=== PATIENT | female | born 1930 | race Caucasian/White ===

== ENCOUNTER → 2016-06-11 | Outpatient (CLI) | payer BC ==
[~2016-06-11] MED LIST: ACYC1CAP8 PO; ACYC400T PO; ALL300 PO; AMLO-110 PO; AMOX500C3 PO; ASPEC81 PO; ASPI81TA28 PO; Asmanex INH; COEN1CAP46 PO; ESCI10TA17 PO; HYDR-5688 PO; HYDR12.55 PO; HYDR25TA4 PO; LEVO75TA5 PO; LORA-741 PO; LSN20 PO; METR0.754 TOP; OMEG10007 PO; PANT40TA PO; SNK PO; TYL325X PO; ULT50X PO
--- NOTE | 2016-06-11 12:02 | Discharge Instructions ---
Discharge Instructions Procedure Procedure Date: Jun 11, 2016. Reason for visit: Lt Breast Pain. Discharge Discharge Date: Jun 11, 2016. Discharge Diagnosis: status post breast biopsy Instructions Activity Recommendations: Additional Limitations (see below) Return to School/Work: no limitations Recommended Home Diet: No Limitations Provider Instructions: ACTIVITY RECOMMENDATIONS: * No lifting, pushing, pulling or exercising the affected side for three days. RETURN TO SCHOOL/WORK: * You may return to work/school after the procedure, but do not perform any strenuous activities for 24 to 48 hours. MEDICATIONS: * Tylenol (two 325 mg) every four to six hours if needed for mild pain (if not allergic to Tylenol). DIET: * Resume previous diet. SPECIAL CARE INSTRUCTIONS: * Keep biopsy site dry for 24 hours. May shower after 24 hours, but do not soak (bathe) incision. * May remove Tegaderm (plastic patch) tomorrow AFTER showering. * Leave the steri-strips on for one week. Allow the steri-strips to fall off by themselves. If not off after one week, you may remove them. You may place a Bandaid crosswise over the strips, if desired. * Apply ice 10 minutes on and 10 minutes off as needed. * Wear a bra at bedtime to sleep more comfortably for 2-3 days. * Your referring physician should have the results after approximately 5 to 7 business days. * Call for unusual bleeding, fever, drainage, etc or if you have any questions call during normal business hours or after hours call Dr Thomas, [phone]. FOLLOW UP VISIT: Follow-up with Referring Physician as scheduled. Allergies Coded Allergies: No Known Allergies (Unverified , 03/20/15) Isidoro Jara Recommendations: Call your doctor if: * Temperature above 101 degrees * Pain not relieved by pain medicine ordered * There is increased drainage or redness from any incision * You have any unanswered questions or concerns. Your Doctors Instructions noted above were prepared by provider Faviola Thomas. Patient Signature Section: Patient Instructions Signature Page Erika Sharma Patient (or Guardian) Signature/Date: I have read and understand the instructions given to me by my caregivers. Caregiver/RN/Doctor Signature/Date: The above-named patient and/or guardian has received patient instructions on this date. + Original Patient Signature Page (only) stays with chart. Please make copy for patient.
--- NOTE | 2016-06-14 14:54 | MAMMOGRAPHY REPORT ---
ULTRASOUND GUIDED BIOPSY LEFT BREAST: 06/11/2016 CLINICAL HISTORY: Left 3:00 breast mass. PATIENT CONSENT: The procedure, risks and benefits were discussed with the patient and informed writ ten consent was obtained. A timeout was performed immediately prior to the procedure. PROCEDURE DESCRIPTION: With ultrasound guidance, aseptic technique, and lidocaine as the local anest hetic (1% lidocaine to anesthetize the skin and 1% lidocaine with epinephrine to anesthetize the femi per tissues), the mass of concern was sampled 4 times with a 14-gauge Achieve biopsy needle. Immed iately thereafter, with ultrasound guidance, aseptic technique, and lidocaine as the local anestheti c, a metallic localizer clip was placed centrally in the mass. Direct pressure was applied to the s ite immediately post procedure and hemostasis was achieved. Postprocedure unilateral mammograms wer e performed to confirm placement of the clip in the expected location of the breast mass. The patie nt tolerated the procedure without complication. She was given wound care instructions. The specime ns were sent to pathology for analysis. COMPARISON: Comparison is made to exams dated: 09/12/2015 mammogram, 09/10/2014 mammogram, 01/23/2013 ma mmogram, 07/13/2012 mammogram, and 03/09/2012 mammogram - [facility]. IMPRESSION: ULTRASOUND GUIDED BIOPSY Ultrasound guided core needle biopsy of the left 3:00 breast mass, with clip placement. The patient will receive pathology results from her referring physician. Faviola Thomas M.D. ah/:06/11/2016 16:21:45 Box Annealer: Sherrie ROBERSON(Jackie)(M), [facility]
--- NOTE | 2016-06-14 14:55 | MAMMOGRAPHY REPORT ---
UNILATERAL LEFT DIGITAL DIAGNOSTIC MAMMOGRAM TOMOSYNTHESIS WITH CAD AND TARGETED LEFT ULTRASOUND: 06/11/2016 CLINICAL HISTORY: History of left breast cancer status post lumpectomy and subsequent benign biopsie s of the left breast. The patient reports worsening nonfocal pain in the left breast. She denies a ny palpable lumps. She has also noted dark brown discharge on her left nipple intermittently; she r eports she has had prior episodes of this in the past as well. TECHNIQUE: Breast tomosynthesis in addition to standard 2D mammography was performed. Current study was also evaluated with a Computer Aided Detection (CAD) system. Left CC and MLO 2-D and tomosynth esis images were obtained. COMPARISON: Comparison is made to exams dated: 09/12/2015 mammogram, 09/10/2014 mammogram, 01/23/2013 ma mmogram, 07/13/2012 mammogram, and 03/09/2012 mammogram - [facility]. BREAST COMPOSITION: There are scattered areas of fibroglandular density in the left breast. FINDINGS: There is a 5 mm mass with non-circumscribed margins seen within the left upper outer quad rant, for which ultrasound is recommended. The remainder of the left breast is stable compared to p rior exams, without suspicious masses, calcifications, or areas of architectural distortion noted. There are stable postsurgical changes in the left breast from prior lumpectomy. Coarse benign dystr ophic calcifications seen throughout the left breast are again noted. Irregular mass seen within th e left superior breast with 2 biopsy marker clips is less prominent compared to prior exams; this wa s previously biopsied with pathology showing benign findings including fat necrosis. Targeted ultrasound was performed of the areas of pain pointed out by the patient, involving the lef t breast from 12 to 3:00. The patient's left breast was quite tender during the ultrasound exam. I n the left breast at 3:00, 6 cm from the nipple, there is a superficial mixed echogenicity mass, whi ch is hyperechoic peripherally and contains a central hypoechoic portion. The total extent of the m ass measures 8 x 4 x 7 mm, with the central hypoechoic portion measuring 2 mm. This correlates with the mammographic mass, and is indeterminate with the differential including fat necrosis or maligna ncy. Recommend ultrasound guided core needle biopsy for further evaluation. The remainder of the u ltrasound exam demonstrates no suspicious masses or other suspicious sonographic abnormalities. In the left 11 at 12:00 breast is a hypoechoic superficial mass, which was previously biopsied and yiel ded benign findings including fat necrosis. In the left 1:00 periareolar breast at the site of a medeiros rgical scar, the surgical bed is diffusely hypoechoic consistent with postsurgical changes, with the surgical bed better evaluated mammographically. Postprocedural left CC and MLO and ML views were obtained after the biopsy. A new ribbon-shaped bio psy marker clip is seen at the site of the biopsied 3:00 breast mass. The biopsied sonographic mass correlates with the mammographic finding. No significant postbiopsy hematoma is seen. IMPRESSION: ACR BI-RADS CATEGORY 4: SUSPICIOUS, TARGETED ULTRASOUND ACR BI-RADS CATEGORY 4: SUSPICI OUS 1. Small 5 mm mass in the left upper outer quadrant mammographically, with a corresponding mixed ec hogenicity mass seen on ultrasound in the left breast at 3:00. The mass is indeterminate and may re present fat necrosis or malignancy. Recommend ultrasound-guided core needle biopsy for further eval uation. 2. No clear mammographic or sonographic abnormality to explain left breast pain or brown nipple dis charge. Recommend clinical follow-up. The results were reviewed with the patient. The biopsy was performed after the diagnostic workup, a s the patient is leaving for [place] on Tuesday. Approximately 10% of breast cancers are not detected with mammography. A negative mammographic repor t should not delay biopsy if a clinically suggestive mass is present. Faviola Thomas M.D. ah/:06/11/2016 16:23:03 Knitting Machine Operator: Sherrie ROBERSON(Jackie)(M), [facility] BI-RADS Code: ACR BI-RADS Category 4: Suspicious Ultrasound BI-RADS: ACR BI-RADS Category 4: Suspic ious
== END | disposition home or self-care (01) ==
LOC: C.MAMM 11:05
PROVIDERS: ATTEND Nurse Practitioner Family
DX: N64.4 Mastodynia (principal); N63 Unspecified lump in breast

== ENCOUNTER → 2016-09-02 | Outpatient (CLI) | payer BC ==
[~2016-09-02] MED LIST changes: +ACYC-57 PO; -ACYC1CAP8 PO
[2016-09-02 10:24] LABS: ALT/SGPT 30 U/L (12-78); BLOOD UREA NITROGEN 29 mg/dl (7-18); BUN/CREATININE RATIO 24.5 (10-20); CALCIUM 9.7 mg/dl (8.5-10.1); CARBON DIOXIDE 30 mmol/L (21-32); CHLORIDE 103 mmol/L (98-107); GLUCOSE 102 mg/dl (70-99); POTASSIUM 4.3 mmol/L (3.5-5.1); SODIUM 140 mmol/L (136-145)
[2016-09-02 10:34] LABS: ALB/GLOB RATIO 1.3 (0.9-2); ALKALINE PHOSPHATASE 97 U/L (45-117); AST/SGOT 25 U/L (15-37)
[2016-09-02 12:31] LABS: MEAN CELL VOLUME 92.9 fL (80-100); MEAN CORPUSCULAR HEMOGLOBIN 31.7 pg (25-34); MEAN CORPUSCULAR HGB CONC 34.1 g/dl (32-36); PLATELET COUNT 172 K/uL (130-400)
[2016-09-02 13:18] LABS: BASO ABS # 0.06 K/uL (0-0.2); COMPLETE YES; EOS % 4.5 %; IG% 0.2 %; LYMPH % 38.7 %; LYMPH ABS # 2.32 K/uL (1.2-3.4); MONO % 11.5 %; NEUT % 44.1 %
== END | disposition home or self-care (01) ==
LOC: C.LABFOXMH 09:27
PROVIDERS: ATTEND Internal Medicine Hematology & Oncology
DX: C91.10 Chronic lymphocytic leukemia of B-cell type not having achieved remission (principal)

== ENCOUNTER → 2016-09-16 | Outpatient (CLI) | payer BC ==
--- NOTE | 2016-09-16 11:25 | DIAGNOSTIC IMAGING REPORT ---
TWO VIEW CHEST CLINICAL HISTORY: Leukemia. FINDINGS: PA and lateral chest radiographs are compared to study dated 03/20/2015 and correlated with chest CT dated 08/28/2013. A left subclavian central venous infusion port is unchanged in position. The heart is mildly enlarged and there is atherosclerotic calcification of the thoracic aorta. The pulmonary vasculature is noncongested. Chronic interstitial thickening is similar to previous. No airspace consolidation or pleural effusion is identified. There is no pneumothorax. The skeletal structures are osteopenic. Degenerative change is seen throughout the thoracic spine. Surgical clips are noted in the left axilla. Cholecystectomy clips are identified in the right upper quadrant. IMPRESSION: Mild cardiac enlargement with no acute cardiopulmonary abnormality. Electronically signed by: Rob Acuna M.D. 09/16/2016 11:23 AM Dictated Date/Time: 09/16/2016 11:21 AM
--- NOTE | 2016-09-16 12:13 | DIAGNOSTIC IMAGING REPORT ---
ABDOMINAL ULTRASOUND COMPLETE HISTORY: Neoplasm. Pain. LEUKEMIA. COMPARISON: February 02, 2010 FINDINGS: Pancreas: The pancreas demonstrates a normal echotexture. 6 mm cystic process seen in the study 2009 is not seen currently Liver: Unremarkable. Gallbladder: Surgically removed CBD: 7 mm unremarkable in a postoperative patient Kidneys: Small left renal cyst measuring 1.5 cm. No evidence for hydronephrosis. 3 cm mid pole right renal cyst. Spleen: Normal in size. Aorta: Normal in caliber. IVC: Patent. IMPRESSION: No significant abnormality identified within the within the abdomen. Small bilateral renal cysts. Prior cholecystectomy. Electronically signed by: Cristian Hernandez M.D. 09/16/2016 12:11 PM Dictated Date/Time: 09/16/2016 12:09 PM
== END | disposition home or self-care (01) ==
LOC: C.ULTR 10:47
PROVIDERS: ATTEND Internal Medicine Hematology & Oncology
DX: C91.10 Chronic lymphocytic leukemia of B-cell type not having achieved remission (principal)

== ENCOUNTER → 2016-10-14 | Outpatient (CLI) | payer BC ==
--- NOTE | 2016-10-14 15:40 | MAMMOGRAPHY REPORT ---
BILATERAL DIGITAL SCREENING MAMMOGRAM TOMOSYNTHESIS WITH CAD: 10/14/2016 CLINICAL HISTORY: Asymptomatic. Personal history of breast cancer. TECHNIQUE: Breast tomosynthesis in addition to standard 2D mammography was performed. Current study was also evaluated with a Computer Aided Detection (CAD) system. COMPARISON: Comparison is made to exams dated: 06/11/2016 ultrasound biopsy, 06/11/2016 ultrasound, 06/11 mammogram, 09/12/2015 mammogram, 09/10/2014 mammogram, and 01/23/2013 mammogram - [facility]. BREAST COMPOSITION: There are scattered areas of fibroglandular density in both breasts. FINDINGS: No suspicious masses, calcifications, or areas of architectural distortion are noted in e ither breast. There has been no significant interval change compared to prior exams. There are stab le postsurgical changes in the left breast from prior lumpectomy. Bilateral benign-appearing calcif ications are not significantly changed. Left breast asymmetries and left breast biopsy marker clips are unchanged. IMPRESSION: ACR BI-RADS CATEGORY 2: BENIGN There is no mammographic evidence of malignancy. A 1 year screening mammogram is recommended. The p atient will receive written notification of the results. Approximately 10% of breast cancers are not detected with mammography. A negative mammographic repor t should not delay biopsy if a clinically suggestive mass is present. Faviola Thomas M.D. ah/:10/14/2016 14:49:30 Business Support Manager: Nevin DELONG)(Dominick), [facility] letter sent: Normal 1/2 BI-RADS Code: ACR BI-RADS Category 2: Benign
== END | disposition home or self-care (01) ==
LOC: C.MAMM 11:17
PROVIDERS: ATTEND Internal Medicine Hematology & Oncology
DX: Z12.31 Encounter for screening mammogram for malignant neoplasm of breast (principal); Z85.3 Personal history of malignant neoplasm of breast

== ENCOUNTER → 2016-12-14 | Outpatient (CLI) | payer BC ==
[~2016-12-14] MED LIST changes: -ACYC-57 PO; +ACYC1CAP8 PO
[2016-12-14 09:09] LABS: HEMATOCRIT 40.5 % (37-47); MEAN CORPUSCULAR HEMOGLOBIN 29.9 pg (25-34); MEAN CORPUSCULAR HGB CONC 32.8 g/dl (32-36); MEAN PLATELET VOLUME 10.7 fL (7.4-10.4); PLATELET COUNT 188 K/uL (130-400); RED BLOOD COUNT 4.45 M/uL (4.2-5.4); WHITE BLOOD COUNT 6.64 K/uL (4.8-10.8)
[2016-12-14 09:17] LABS: BLOOD UREA NITROGEN 26 mg/dl (7-18); BUN/CREATININE RATIO 23.9 (10-20); CALCIUM 9.8 mg/dl (8.5-10.1); CARBON DIOXIDE 28 mmol/L (21-32); CHLORIDE 102 mmol/L (98-107); GLUCOSE 97 mg/dl (70-99); POTASSIUM 4.5 mmol/L (3.5-5.1); SODIUM 137 mmol/L (136-145)
== END | disposition home or self-care (01) ==
LOC: C.LABFOXMH 08:49
PROVIDERS: ATTEND Internal Medicine
DX: I10 Essential (primary) hypertension (principal)

== ENCOUNTER → 2017-03-08 | Outpatient (CLI) | payer BC ==
[~2017-03-08] MED LIST changes: -ACYC1CAP8 PO; -ALL300 PO; -ASPEC81 PO; -Asmanex INH; -COEN1CAP46 PO; -HYDR-5688 PO; -HYDR12.55 PO; -LORA-741 PO; -METR0.754 TOP; -OMEG10007 PO; -SNK PO; -TYL325X PO; -ULT50X PO
[2017-03-08 09:34] LABS: BASO % 1.3 %; BASO ABS # 0.08 K/uL (0-0.2); COMPLETE YES; EOS % 4.8 %; HEMATOCRIT 38.6 % (37-47); IG% 0.3 %; LYMPH % 32.3 %; LYMPH ABS # 2.04 K/uL (1.2-3.4); MEAN CELL VOLUME 90.6 fL (80-100); MEAN CORPUSCULAR HGB CONC 34.2 g/dl (32-36); MEAN PLATELET VOLUME 10.6 fL (7.4-10.4); MONO % 16.2 %; NEUT % 45.1 %; PLATELET COUNT 185 K/uL (130-400); RED BLOOD COUNT 4.26 M/uL (4.2-5.4); WHITE BLOOD COUNT 6.31 K/uL (4.8-10.8)
[2017-03-08 09:41] LABS: BLOOD UREA NITROGEN 26 mg/dl (7-18); BUN/CREATININE RATIO 25.9 (10-20); CALCIUM 9.7 mg/dl (8.5-10.1); CARBON DIOXIDE 26 mmol/L (21-32); CHLORIDE 101 mmol/L (98-107); GLUCOSE 109 mg/dl (70-99); POTASSIUM 4.3 mmol/L (3.5-5.1); SODIUM 135 mmol/L (136-145)
[2017-03-08 09:53] LABS: IMMUNOGLOBULN M 38.3 mg/dL (40-230)
== END | disposition home or self-care (01) ==
LOC: C.LABFOXMH 09:15
PROVIDERS: ATTEND Surgery
DX: Z95.828 Presence of other vascular implants and grafts (principal); C91.10 Chronic lymphocytic leukemia of B-cell type not having achieved remission

== ENCOUNTER → 2017-03-22 | Day surgery (SDC) | payer BC ==
[2017-03-02 11:12] VITALS: Ht 152.4 cm; Wt 54.5 kg
--- NOTE | 2017-03-02 16:45 | PAT Medication Instructions ---
Service Date Mar 02, 2017. Current Home Medication List Acyclovir (Acyclovir), 1 TAB PO QAM Amlodipine (Norvasc), 5 MG PO QAM Amoxicillin (Amoxil), 4 CAP PO UD PRN for DENTAL APPTS Aspirin (Aspirin Ec), 81 MG PO QAM Escitalopram (Lexapro), 10 MG PO QAM Hydrochlorothiazide (Hctz), 25 MG PO QAM Levothyroxine Sodium (Levothyroxine Sodium), 1 TAB PO QAM Lisinopril (Lisinopril), 20 MG PO QAM Pantoprazole (Protonix), 40 MG PO QAM Medication Instructions For Your Scheduled Surgery -Continue as directed: Amoxicillin (Amoxil), 4 CAP PO UD PRN for DENTAL APPTS - Instructions to be given by surgeon, otherwise okay to take per anesthesia: Aspirin (Aspirin Ec), 81 MG PO QAM - Hold the following medications the morning of surgery: Hydrochlorothiazide (Hctz), 25 MG PO QAM Lisinopril (Lisinopril), 20 MG PO QAM - Take the following medications the morning of surgery with a sip of water: Levothyroxine Sodium (Levothyroxine Sodium), 1 TAB PO QAM Pantoprazole (Protonix), 40 MG PO QAM Escitalopram (Lexapro), 10 MG PO QAM Acyclovir (Acyclovir), 1 TAB PO QAM Amlodipine (Norvasc), 5 MG PO QAM *OTHERWISE NOTHING TO EAT OR DRINK AFTER MIDNIGHT* If you have any questions please call us at [phone] or [phone] or [phone]
[~2017-03-22] VITALS: Ht 152.4 cm; Wt 54.5 kg
[~2017-03-22] MED LIST changes: +ATROPINE SULFATE 0.1 MG/ML 5ML SYR IV PRN; +CEFAZOLIN 2000 MG/60 ML D5W IV SCH; +EpHEDrine SULFATE INJ 50 MG/ML AMP IV PRN; +FENTANYL CITRATE INJ 50 MCG/1 ML 2 ML VIAL IV PRN; +FENTANYL CITRATE INJ 50 MCG/1 ML 2 ML VIAL ONE; +HYDR-5688 PO; +HYDROCODONE/ACETAMOPHEN 5/325MG TAB PO PRN; +LACTATED RINGER'S 1000ML 1,000 ML IV SCH; +LIDOCAINE HCL 1% 20 ML VIAL ONE; +ONDANSETRON INJ 2 MG/ML 2 ML VIAL IV PRN; +PROPOFOL IV EMULSION 10 MG/ML 20 ML VIAL IV ONE; +SODIUM CHLORIDE 0.9% 1000ML 1,000 ML IV SCH
--- NOTE | 2017-03-22 13:00 | History & Physical Bridge - SC ---
H&P Re-Evaluation Bridge Note: I have examined the patient, reviewed the History & Physical and in the interval since the performance of the History & Physical I have noted the following changes of clinical significance: No changes noted
--- NOTE | 2017-03-22 14:44 | [facility] Operative Report ---
Operative Report Operative Date Mar 22, 2017. Pre-Operative Diagnosis Port-A-Cath in Place Post-Operative Diagnosis Same Procedure(s) Performed Infusaport Removal Surgeon Dr. Brush Last Repairer Helper Surgeon(s) None Estimated Blood Loss 3 ml Findings port Specimens A. Explanted A-port Anesthesia local/ sedation Complication(s) None Disposition Recovery Room / PACU I attest to the content of the Intraoperative Record and any orders documented therein. Any exceptions are noted below.
[2017-03-22 14:46] VITALS: TEMP 36.4
--- NOTE | 2017-03-22 14:47 | Discharge Instructions-SurgCtr ---
Discharge Instructions Date of Service Mar 22, 2017. Visit Reason for Visit: Port-A-Cath In Place Discharge Discharge Diagnosis / Problem: port Discharge Goals Goal(s): Decrease discomfort, Improve function, Improve disease control Activity Recommendations Activity Limitations: as noted below Lifting Limitations: gradually increase as tolerated Exercise/Sports Limitations: rest today, gradually increase as tolerated May Resume Sexual Activity: when tolerated Shower/Bathe: tomorrow Driving or Machine Use: resume 1 day after discharge SPECIAL CARE INSTRUCTIONS: * Cover incisions and change daily for comfort/drainage * May use ibuprofen for pain as tolerated. * Expect some swelling and bruising. Call your doctor if: * Temperature above 101 degrees * Pain not relieved by pain medicine ordered * There is increased drainage or redness from any incision * You have any unanswered questions or concerns [phone]. FOLLOW UP VISIT: If not already scheduled, please call the office for a follow-up visit. for 2 weeks- suture removal OFFICE PHONE NUMBER: Dr. Brush Office Anesthesia . Post Anesthesia Instructions: If you have had General Anesthesia or IV Sedation: * Do not drive today. * Resume driving when surgeon permits. * Do not make important decisions or sign legal documents today. * Call surgeon for: 1. Temperature elevations greater than 101 degrees F. 2. Uncontrollable pain. 3. Excessive bleeding. 4. Persistent nausea and vomiting. 5. Medication intolerance (nausea, vomiting or rash). * For nausea and vomiting use only clear liquids such as: tea, soda, bouillon until nausea subsides, then gradually increase diet as tolerated. * If you have any concerns or questions, call your surgeon's office. If physician is unavailable and it is an emergency, call 911 or go to the nearest emergency room. . Diet Recommendations Home Diet: resume previous diet Procedures Procedures Performed: Infusaport Removal Pending Studies Studies pending at discharge: no Medical Emergencies . Who to Call and When: Medical Emergencies: If at any time you feel your situation is an emergency, please call 911 immediately. . Non-Emergent Contact Non-Emergency issues call your: Primary Care Provider, Surgeon . . "Provider Documentation" section prepared by Jean-Paul Brush. .
[2017-03-22 15:13] VITALS: BP 158/75; PULSE 69; O2SAT 98
--- NOTE | 2017-03-22 15:17 | Anesthesiology Progress Note ---
Anesthesia Post Op Note Date & Time Mar 22, 2017 at 15:16 Vital Signs Pain Intensity: 0 Vital Signs Past 12 Hours Date Time Temp Pulse Resp B/P (MAP) Pulse Ox O2 Delivery O2 Flow Rate FiO2 03/22/17 14:46 36.4 59 16 146/72 (96) 95 Room Air 03/22/17 13:04 36.4 80 18 188/88 (121) 97 Room Air Notes Mental Status: alert / awake / arousable, participated in evaluation Pt Amnestic to Procedure: Yes Nausea / Vomiting: adequately controlled Pain: adequately controlled Airway Patency, RR, SpO2: stable & adequate BP & HR: stable & adequate Hydration State: stable & adequate Anesthetic Complications: no major complications apparent
--- NOTE | 2017-03-22 16:54 | OPERATIVE REPORT ---
DATE OF OPERATION: 03/22/2017 NAME OF OPERATION: Port removal. PREOPERATIVE DIAGNOSIS: Hand port in place. POSTOPERATIVE DIAGNOSIS: Same. STAFF SURGEON: Dr. Brush. ANESTHESIA: 1% plain lidocaine with sedation. PROCEDURE: The patient was brought in the operating room and placed on the operating table in supine position. Her left chest was prepped and draped in usual fashion. Using 1% plain lidocaine, skin and subcutaneous tissue were anesthetized. Incision made carrying dissection down identifying the port, dissecting it from surrounding tissue, removing the port. The tunnel was oversewn using 2-0 chromic catgut suture then the deep tissue reapproximated using 2-0 chromic catgut suture then the skin reapproximated using 4-0 nylon suture. Dressing applied and patient transferred to recovery room in stable condition. I attest to the content of the Intraoperative Record and any orders documented therein. Any exception s are noted below.
== END | disposition home or self-care (01) ==
LOC: X.SURG 12:53
PROVIDERS: ATTEND Surgery
DX: Z45.2 Encounter for adjustment and management of vascular access device (principal); I10 Essential (primary) hypertension; E03.9 Hypothyroidism, unspecified; E78.00 Pure hypercholesterolemia, unspecified; M19.90 Unspecified osteoarthritis, unspecified site; Z90.89 Acquired absence of other organs; Z90.49 Acquired absence of other specified parts of digestive tract; Z96.649 Presence of unspecified artificial hip joint; Z79.82 Long term (current) use of aspirin

== ENCOUNTER → 2017-08-23 | Outpatient (CLI) | payer BC ==
[~2017-08-23] MED LIST changes: -ATROPINE SULFATE 0.1 MG/ML 5ML SYR IV PRN; -CEFAZOLIN 2000 MG/60 ML D5W IV SCH; -EpHEDrine SULFATE INJ 50 MG/ML AMP IV PRN; -FENTANYL CITRATE INJ 50 MCG/1 ML 2 ML VIAL IV PRN; -FENTANYL CITRATE INJ 50 MCG/1 ML 2 ML VIAL ONE; -HYDROCODONE/ACETAMOPHEN 5/325MG TAB PO PRN; -LACTATED RINGER'S 1000ML 1,000 ML IV SCH; -LIDOCAINE HCL 1% 20 ML VIAL ONE; -ONDANSETRON INJ 2 MG/ML 2 ML VIAL IV PRN; -PROPOFOL IV EMULSION 10 MG/ML 20 ML VIAL IV ONE; -SODIUM CHLORIDE 0.9% 1000ML 1,000 ML IV SCH
[2017-08-23 08:08] LABS: HEMATOCRIT 44.3 % (37-47); HEMOGLOBIN 14.3 g/dL (12.0-16.0); MEAN CELL VOLUME 92.1 fL (80-100); MEAN CORPUSCULAR HEMOGLOBIN 29.7 pg (25-34); MEAN CORPUSCULAR HGB CONC 32.3 g/dl (32-36); MEAN PLATELET VOLUME 10.6 fL (7.4-10.4); PLATELET COUNT 190 K/uL (130-400); RED CELL DISTRIBUTION WIDTH CV 12.7 % (11.5-14.5); RED CELL DISTRIBUTION WIDTH SD 42.8 fL (36.4-46.3)
[2017-08-23 08:15] LABS: ALBUMIN 3.4 gm/dl (3.4-5.0); ALT/SGPT 24 U/L (12-78); BLOOD UREA NITROGEN 33 mg/dl (7-18); CALCIUM 9.8 mg/dl (8.5-10.1); CARBON DIOXIDE 28 mmol/L (21-32); CHOLESTEROL 240 mg/dl (0-200); CREATININE 1.17 mg/dl (0.60-1.20); GLUCOSE 98 mg/dl (70-99); POTASSIUM 4.4 mmol/L (3.5-5.1); SODIUM 136 mmol/L (136-145)
[2017-08-23 08:26] LABS: ALKALINE PHOSPHATASE 88 U/L (45-117); AST/SGOT 24 U/L (15-37); LDL CHOLESTEROL CALCULATED 149 mg/dl; TOTAL PROTEIN 6.4 gm/dl (6.4-8.2)
== END ==
LOC: C.LABFOXMH 07:56
PROVIDERS: ATTEND Internal Medicine
DX: E78.00 Pure hypercholesterolemia, unspecified (principal); C91.10 Chronic lymphocytic leukemia of B-cell type not having achieved remission

== ENCOUNTER → 2017-12-26 | Outpatient (CLI) | payer BC ==
[~2017-12-26] MED LIST changes: -AMLO-110 PO; +AMLO5TAB3 PO; -HYDR-5688 PO; +LISI-726 PO; -LSN20 PO
--- NOTE | 2017-12-26 17:53 | DIAGNOSTIC IMAGING REPORT ---
3 PHASE BONE SCAN OF THE PELVIS/HIPS HISTORY: Bilateral hip PAIN, S/P MOE RADIOTRACER: 25.4 mCi Tc-99m MDP STUDY/IMAGES: Planar anterior and posterior whole body imaging was performed 3 hours following the intravenous administration of radiotracer. COMPARISON: Pelvis radiograph 04/14/2015. 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 No abnormal radiotracer uptake seen within the blood pool or blood flow sequences. Minimal periprosthetic uptake within the bilateral hips is symmetric and therefore likely within the range normal limits. Mild radiotracer uptake seen within the shoulders and knees consistent with degenerative change. Focus of radiotracer uptake seen within the left posterior L5-S1 facet also likely represents degenerative change. Faint areas of bilateral rib uptake likely represent old posttraumatic changes. IMPRESSION: 1. No evidence for three-phase uptake within the pelvis or hips. 2. Minimal symmetric periprosthetic uptake within the bilateral hips is considered to be within the range of normal limits. Electronically signed by: Lai Juárez M.D. 12/26/2017 5:51 PM Dictated Date/Time: 12/26/2017 5:47 PM
== END | disposition home or self-care (01) ==
LOC: C.NUCL 13:34
DX: Z96.643 Presence of artificial hip joint, bilateral (principal)

== ENCOUNTER → 2017-12-27 | Outpatient (CLI) | payer BC ==
[2017-12-27 09:44] LABS: HEMATOCRIT 40.9 % (37-47); HEMOGLOBIN 13.1 g/dL (12.0-16.0); MEAN CELL VOLUME 92.3 fL (80-100); MEAN CORPUSCULAR HEMOGLOBIN 29.6 pg (25-34); MEAN PLATELET VOLUME 10.8 fL (7.4-10.4); PLATELET COUNT 161 K/uL (130-400); RED CELL DISTRIBUTION WIDTH CV 12.7 % (11.5-14.5); RED CELL DISTRIBUTION WIDTH SD 42.9 fL (36.4-46.3); WHITE BLOOD COUNT 8.02 K/uL (4.8-10.8)
[2017-12-27 09:58] LABS: ALBUMIN 3.3 gm/dl (3.4-5.0); BLOOD UREA NITROGEN 32 mg/dl (7-18); CALCIUM 9.6 mg/dl (8.5-10.1); CARBON DIOXIDE 27 mmol/L (21-32); CREATININE 1.05 mg/dl (0.60-1.20); GLUCOSE 99 mg/dl (70-99); POTASSIUM 4.2 mmol/L (3.5-5.1); SODIUM 139 mmol/L (136-145); TOTAL PROTEIN 6.3 gm/dl (6.4-8.2)
[2017-12-27 09:59] LABS: ALKALINE PHOSPHATASE 85 U/L (45-117); ALT/SGPT 24 U/L (12-78); AST/SGOT 23 U/L (15-37); CHOLESTEROL 229 mg/dl (0-200); LDL CHOLESTEROL CALCULATED 159 mg/dl
== END | disposition home or self-care (01) ==
LOC: C.LABFOXMH 08:59
PROVIDERS: ATTEND Internal Medicine
DX: I10 Essential (primary) hypertension (principal); E78.5 Hyperlipidemia, unspecified

== ENCOUNTER 2018-11-06 10:20 | Observation (INO) ==
--- NOTE | 2018-10-27 10:36 | Anesthesiology Consultation ---
Date of Service October 27, 2018 Assessment & Plan (1) Encounter for pre-operative examination: (2) Encounter for pre-operative examination: Chart Review Chart Review: Acceptable Risk for Surgery and Patient NOT seen in Pre Admission Testing History Surgery Operation Date: 11/06/18 08:20 Proposed Procedures p Left Breast Nipple Area Excision - Jean-Paul Brush MD, FACS Height/Weight Height: 5 ft Weight: 54.885 kg Allergies Allergy/AdvReac Type Severity Reaction Status Date / Time No Known Allergies Allergy Verified 10/25/18 10:44 Medications Home Medications Medication Instructions Recorded Confirmed Last Taken acyclovir 400 mg PO QAM 10/25/18 10/25/18 Unknown albuterol sulfate [ProAir HFA] 1 puff INHALATION Q4H PRN 10/25/18 10/25/18 Unknown amlodipine [Norvasc] 5 mg PO QAM 10/25/18 10/25/18 Unknown amoxicillin 500 mg PO UD PRN 10/25/18 10/25/18 Unknown aspirin 81 mg PO QAM 10/25/18 10/25/18 Unknown escitalopram oxalate [Lexapro] 10 mg PO QAM 10/25/18 10/25/18 Unknown hydrochlorothiazide 25 mg PO QAM 10/25/18 10/25/18 Unknown levothyroxine [Synthroid] 75 mcg PO QAM 10/25/18 10/25/18 Unknown lisinopril 20 mg PO QAM 10/25/18 10/25/18 Unknown mometasone [Asmanex Twisthaler] 2 inh INHALATION BID 10/25/18 10/25/18 Unknown omega 5-fjv-nwv-fish oil [Fish Oil] 1 cap PO BID 10/25/18 10/25/18 Unknown pantoprazole 40 mg PO QAM 10/25/18 10/25/18 Unknown Past Medical History Medical History Anxiety Cancer SKIN CANCER (MELANOMA) LEFT BREAST CANCER (LUMPECTOMY) Chronic obstructive pulmonary disease Degenerative disc disease GERD (gastroesophageal reflux disease) Hypertension Hypothyroidism Osteoarthritis Stomach ulcer 1987 Past Surgical History Surgical History History of appendectomy History of breast biopsy History of cataract surgery RT/LEFT History of cholecystectomy History of colonoscopy History of dilatation and curettage X2 History of esophagogastroduodenoscopy (EGD) History of lobectomy of lung RT LOWER LOBECTOMY (BENIGN) History of tonsillectomy History of total hip arthroplasty LEFT/RT History of vascular access device A PORT INSERTION/REMOVAL Hx of lumpectomy LEFT Nausea and vomiting after administration of anesthetic agent + SHAKING ALL OVER AND "HYPER" AFTER A-PORT REMOVAL Social History Smoking Status: Never smoker Do You Dip or Chew Tobacco: No Hx Alcohol Use: Yes Alcohol type: wine alcohol intake frequency: a few times a month Hx Substance Use: No substance use type: does not use Testing Electrocardiogram Date: 09/26/18 Findings: + NSR @ (73) Chest X-Ray Date: 10/06/18 Findings: + NAD Stress Test Date: 10/06/18 Type: DSE negative dobutamine stress echo at 87% MPHR Dobutamine induced chest pain No EKG changes Baseline echocardiogram notes normal left ventricular systolic function and mild LVH EF 65-70% Other Testing Laboratory Tests 10/09/18 10/09/18 06:20 06:20 WBC 11.38 H Hgb 13.0 Plt Count 151 Sodium 142 Potassium 4.4 Chloride 108 H Carbon Dioxide 28 BUN 27 H Creatinine 1.06 Glucose 101 H Calcium 9.7
[~2018-11-06 10:20] MED LIST changes: -ACYC400T PO; -AMLO5TAB3 PO; -AMOX500C3 PO; -ASPI81TA28 PO; +CEFAZOLIN 2000MG 2,000 MG/15 ML SYR IV SCH; -ESCI10TA17 PO; -HYDR25TA4 PO; -LEVO75TA5 PO; -LISI-726 PO; +LR 15ML/HR IV SCH; -PANT40TA PO
[2018-11-06] MEDS ORDERED: PROPOFOL IV EMULSION 10 MG/ML 20 ML VIAL IV ONE (10:31)
[2018-11-06] MEDS ORDERED: LIDOCAINE HCL 2% 2 ML VIAL/AMP(20MG/ML) INFIL ONE (10:31)
[2018-11-06] MEDS ORDERED: ONDANSETRON INJ 2 MG/ML 2 ML VIAL ONE (10:31)
[2018-11-06] MEDS ORDERED: MIDAZOLAM HCL 1 MG/ML 2ML VIAL ONE ×2 (10:31→11:54)
[2018-11-06] MEDS ORDERED: fentaNYL citrate 100 MCG/2 ML VIAL ONE (10:32)
[2018-11-06] MEDS ORDERED: ePHEDrine sulfate 50 MG/ML AMP IV PRN (11:16)
[2018-11-06] MEDS ORDERED: ATROPINE SULFATE 0.1 MG/ML 10ML SYR IV PRN (11:16)
[2018-11-06] MEDS ORDERED: fentaNYL citrate 100 MCG/2 ML VIAL IV PRN (11:16)
[2018-11-06] MEDS ORDERED: ONDANSETRON INJ 2 MG/ML 2 ML VIAL IV PRN ×2 (11:16→14:21)
[2018-11-06] MEDS ORDERED: ACETAMINOPHEN 1000 MG/100 ML IV IV ONE (11:28)
--- NOTE | 2018-11-06 11:39 | History & Physical Bridge Note ---
Date of Service November 06, 2018 History & Physical Bridge Note I have examined the patient, reviewed the History & Physical and in the interval since the performance of the History & Physical I have noted the following changes of clinical significance: no changes noted
[2018-11-06] MEDS ORDERED: BUPIVACAINE 0.5 % 5 MG/1 ML MPF 30ML VIAL ONE (11:44)
--- NOTE | 2018-11-06 12:24 | Operative Report ---
Post Operative Report Pre & Post Diagnosis Operation Date: 11/06/18 12:10 Pre-Op Diagnosis: Left Breast Nipple Discharge Post-Op Diagnosis: Left Breast Nipple Discharge Procedure Operation Date: 11/06/18 12:10 Actual Procedures p Left Breast Nipple Areola Excision(Left) - Jean-Paul Brush MD, FACS Surgeon Jean-Paul Brush MD, FACS Stabilizing Machine Operator Kendra Barnett Estimated Blood Loss 5 Findings Consistent with Post-Op Diagnosis Specimens Lt nipple/ areola, addnl deep tissue Description of Procedure see dictation I attest to the content of the Intraoperative Record and any orders documented therein. Any exceptions are noted below.
--- NOTE | 2018-11-06 13:22 | Anesthesiology Progress Note ---
Date of Service November 06, 2018 Anesthesia Post Procedure Vital Signs Vital Signs: Temp Pulse Pulse Resp BP Pulse Ox 11/06/18 13:20 72 16 142/64 H 95 11/06/18 13:10 73 16 150/69 H 100 11/06/18 13:00 72 16 156/73 H 100 11/06/18 12:50 72 16 160/70 H 99 11/06/18 12:41 36.6 C 71 16 184/85 H 99 11/06/18 10:54 36.5 C 77 18 161/74 H 98 Transfer of Care Handoff Completed per policy Notes Mental Status: alert / awake / arousable and participated in evaluation Patient Amnestic to Procedure: Yes Nausea / Vomiting: adequately controlled Pain: adequately controlled Airway Patency, RR, SpO2: stable & adequate BP & HR: stable & adequate Hydration State: stable & adequate Anesthetic Complications: no major complications apparent and Pt Satisfied with anesthetic care
--- NOTE | 2018-11-06 13:49 | Operative Report ---
DATE OF OPERATION: 11/06/2018 NAME OF OPERATION: Left breast excision of nipple and areola. PREOPERATIVE DIAGNOSIS: Abnormal left nipple. POSTOPERATIVE DIAGNOSIS: Abnormal left nipple. STAFF SURGEON: Jean-Paul Brush MD. OWNER: Andre Barnett PA-C ANESTHESIA: General. DESCRIPTION OF PROCEDURE: The patient was brought in the operating room and placed on the operating table in supine position. Her left breast was prepped and draped in usual fashion. 0.5% plain Marcaine was used to anesthetize the skin and subcutaneous tissue around the needle and areolar area. An elliptical incision was made carrying dissection down deep into the subcutaneous tissue excising the nipple and part of the areola. It was marked with a long silk suture lateral. Additional deep tissue was also taken which was very calcified and cylindrical in nature. At this point, deep tissue was reapproximated using 2-0 plain suture and then the skin reapproximated using 5-0 Prolene suture. Dressing applied and the patient transferred to recovery room in stable condition. My higher level teaching assistant helped with prepping, draping, excision of the breast tissue and closure of the wound. I attest to the content of the Intraoperative Record and any orders documented therein. Any exception s are noted below.
[2018-11-06] MEDS ORDERED: ACETAMINOPHEN 325 MG TAB PO PRN (14:21)
[2018-11-06] MEDS ORDERED: ALBUTEROL HFA INHALER 8.5 GM INH PRN (14:21)
[2018-11-06] MEDS ORDERED: TRAMADOL HCL 50 MG TABLET PO PRN (14:21)
[2018-11-06] MEDS ORDERED: SODIUM CHLORIDE 0.9% 1000ML 1,000 ML IV SCH (14:21)
--- NOTE | 2018-11-06 18:01 | Hospitalist Consultation ---
Date of Consultation November 06, 2018 Assessment & Plan (1) Nipple discharge: - S/p excision for biopsy today. - Pain control per primary team. - Will need to f/u biopsy results. (2) History of breast cancer: - H/o breast cancer, treated with lumpectomy. - Breast biopsy as noted above. (3) GERD (gastroesophageal reflux disease): - PPI qAM. (4) HTN (hypertension): - Continue HCTZ and Amlodipine as prescribed. (5) Hypothyroidism: - Continue Synthroid as prescribed. - Most recent TSH was 2.5. (6) Anxiety: - Continue Lexapro as prescribed. (7) Asthma: - Continue Asmanex as prescribed. (8) DVT prophylaxis: - Not indicated, will be short hospital stay. Dispo: Will continue to follow. Supervising Physician Co-Signing Physician Notes EUGENE Supervision Note: I personally saw and examined the patient. I verified all case points and agree with EUGENE Mclean with the following exceptions and/or additions: Patient doing well, pain is controlled Denies any other problems History reviewed as above Vitals reviewed Gen: AAOx3, NAD HEENT: Anicteric sclerae, EOMI CV: RRR no mgr nl S1S2, left breast with dressing in place clean dry and intact Pulm: CTAB no wcr Abd: +BS soft NT ND no masses or hernias Ext: No edema, 2+ DP pulses Skin: No rashes, warm/dry Neuro: Full strength throughout 88-year-old female with history as above, here with left breast nipple and area Flores excision due to abnormal nipple discharge in the setting of previous breast cancer -Doing very well from our standpoint -Continue all medications as above Will follow along until the morning at which time she will likely be discharged History of Present Illness Reason for Consultation: Medical Management Attending Physician: Jean-Paul Brush MD, FACS History of Present Illness Ms. Sharma is an 88 year old female with PMHx of anxiety, asthma, GERD, HTN, Hypothyroidism, breast cancer, skin cancer who presented for a left breast excision of nipple and areola. Pt. is doing well postop. Allergies Allergy/AdvReac Type Severity Reaction Status Date / Time No Known Allergies Allergy Verified 11/06/18 10:50 Home Medications Home Medications Medication Instructions Recorded Confirmed Type acyclovir 400 mg PO QAM 10/25/18 11/06/18 History albuterol sulfate [ProAir HFA] 1 puff INHALATION Q4H PRN 10/25/18 11/06/18 History amlodipine [Norvasc] 5 mg PO QAM 10/25/18 11/06/18 History amoxicillin 500 mg PO UD PRN 10/25/18 11/06/18 History aspirin 81 mg PO QAM 10/25/18 11/06/18 History escitalopram oxalate [Lexapro] 10 mg PO QAM 10/25/18 11/06/18 History hydrochlorothiazide 25 mg PO QAM 10/25/18 11/06/18 History levothyroxine [Synthroid] 75 mcg PO QAM 10/25/18 11/06/18 History lisinopril 20 mg PO QAM 10/25/18 11/06/18 History mometasone [Asmanex Twisthaler] 2 inh INHALATION BID 10/25/18 11/06/18 History omega [id number]-fish oil [Fish Oil] 1 cap PO BID 10/25/18 11/06/18 History pantoprazole 40 mg PO QAM 10/25/18 11/06/18 History tramadol 50 mg PO Q6H PRN #20 tab 11/06/18 Rx Patient History Medical History Anxiety Cancer SKIN CANCER (MELANOMA) LEFT BREAST CANCER (LUMPECTOMY) Chronic obstructive pulmonary disease Degenerative disc disease GERD (gastroesophageal reflux disease) Hypertension Hypothyroidism Osteoarthritis Stomach ulcer 1987 Surgical History History of appendectomy History of breast biopsy History of cataract surgery RT/LEFT History of cholecystectomy History of colonoscopy History of dilatation and curettage X2 History of esophagogastroduodenoscopy (EGD) History of lobectomy of lung RT LOWER LOBECTOMY (BENIGN) History of tonsillectomy History of total hip arthroplasty LEFT/RT History of vascular access device A PORT INSERTION/REMOVAL Hx of lumpectomy LEFT Nausea and vomiting after administration of anesthetic agent + SHAKING ALL OVER AND "HYPER" AFTER A-PORT REMOVAL Family History Father Family history non-contributory Social History Preferred Language: Armenian Communication Ability: Effective Book Or Script Editor Required: No Beliefs That Will Affect Care: None Current Living Situation: Alone Current Living Situation Comment: INDEPENDENT LIVING AT [facility] Other Information That Helps Us Care for You: No Feels Safe at Home: Yes Safety Concerns: Feels Safe At This Time Smoking Status: Never smoker Do You Dip or Chew Tobacco: No Second Hand Exposure: Yes (PAST HX EXPOSURE) Tobacco Cessation Education Requested by Patient: No Hx Alcohol Use: Yes Alcohol type: wine Hx Substance Use: No Review of Systems Review of Systems: All systems reviewed & are unremarkable except as noted in HPI & below Constitutional: no fever, no chills, no fatigue, no weakness and no anorexia Respiratory: no cough, no dyspnea and no dyspnea on exertion Cardiovascular: no chest pain, no palpitations, no lightheadedness, no syncope and no edema Gastrointestinal: no abdominal pain, no nausea, no vomiting, no constipation and no diarrhea/loose stools Genitourinary: no dysuria, no difficulty urinating and no hematuria Musculoskeletal: no back pain, no joint pain and no swelling Integumentary: no non-healing lesions Neurologic: no dizziness Hematologic / Lymphatic: no easy bleeding and no easy bruising Allergy / Immunological: no rash Physical Exam Physical Exam: General: Resting comfortably in no apparent distress HEENT: NC/AT; PERRLA with EOMI; [place] conjunctiva, MMM. No erythema of posterior pharynx Neck: Supple and nontender Cardiac: RRR w/o murmurs, gallops or rubs Lungs: CTA bilaterally; No rhonchi, wheezing, or rales Abdomen: Bowel normoactive X 4; Nontender to palpation Extremities: Warm. No edema present Neuro: No focal weakness Skin: No rash Results & Data Vital Signs (Past 12 Hours) Vital Signs Temp Pulse Pulse Pulse Pulse Resp BP 11/06/18 17:00 36.9 C 70 16 119/64 11/06/18 16:01 36.4 C L 70 16 124/66 11/06/18 15:10 35.7 C L 74 16 136/80 11/06/18 14:59 77 16 152/72 H 11/06/18 14:00 36.8 C 77 16 148/84 H 11/06/18 13:45 36.4 C L 69 16 157/73 H 11/06/18 13:30 70 16 122/62 11/06/18 13:20 72 16 142/64 H 11/06/18 13:10 73 16 150/69 H 11/06/18 13:00 72 16 156/73 H 11/06/18 12:50 72 16 160/70 H 11/06/18 12:41 36.6 C 71 16 184/85 H 11/06/18 10:54 36.5 C 77 18 161/74 H Pulse Ox 11/06/18 17:00 93 11/06/18 16:01 92 11/06/18 15:10 94 11/06/18 14:59 99 11/06/18 14:00 91 11/06/18 13:45 95 11/06/18 13:30 95 11/06/18 13:20 95 11/06/18 13:10 100 11/06/18 13:00 100 11/06/18 12:50 99 11/06/18 12:41 99 11/06/18 10:54 98
[2018-11-06] MEDS: CEFAZOLIN 1000MG 1,000 MG/7.5 ML SYR IV SCH (20:22)
[2018-11-06] MEDS: MOMETASONE FUROATE 14 PUFF/1 INHALER INH SCH (20:23)
[2018-11-07] MEDS: CEFAZOLIN 1000MG 1,000 MG/7.5 ML SYR IV SCH (04:57)
[2018-11-07] MEDS ORDERED: LEVOTHYROXINE SODIUM 75 MCG TABLET PO SCH (06:30)
--- NOTE | 2018-11-07 08:12 | Discharge Summary ---
PRINCIPAL DIAGNOSIS: Left nipple abnormality. PROCEDURES: The patient underwent excision of the left nipple and partial areola. HISTORY OF PRESENT ILLNESS: The patient is an 88-year-old female who has had previous breast surgery on the left side. She has had some drainage and irritation of the left nipple area. HOSPITAL COURSE: She was brought into the hospital on 11/06/2018 where she underwent excision of the left nipple and areolar site. She did quite well and has done well overnight and is felt stable for discharge back to [facility] today.
[2018-11-07 08:43] LABS: Hematocrit (blood only) 38.4 % (37-47); Hemoglobin 12.8 g/dL (12.0-16.0); Mean Corpuscular Hgb Conc 33.3 g/dL (32-36); Mean Corpuscular Volume 92.3 fL (80-100); Mean Platelet Volume 10.3 fL (7.4-10.4); Platelet Count 148 K/uL (130-400); RDW Coefficient of Variation 12.9 % (11.5-14.5); RDW Standard Deviation 43.6 fL (36.4-46.3); Red Blood Count 4.16 M/uL (4.2-5.4); White Blood Count 19.61 K/uL (4.8-10.8)
[2018-11-07] MEDS ORDERED: LISINOPRIL 20 MG TAB PO SCH (09:00)
[2018-11-07] MEDS ORDERED: AMLODIPINE BESYLATE 5 MG TAB PO SCH (09:00)
[2018-11-07] MEDS ORDERED: PANTOprazole 40 MG TAB PO SCH (09:00)
[2018-11-07] MEDS ORDERED: ESCITALOPRAM OXALATE 10 MG TAB PO SCH (09:00)
[2018-11-07] MEDS ORDERED: hydroCHLOROthiazide 25 MG TAB PO SCH (09:00)
[2018-11-07] MEDS: MOMETASONE FUROATE 14 PUFF/1 INHALER INH SCH (09:06)
[2018-11-07 09:07] LABS: Albumin Level 3.2 gm/dl (3.4-5.0); BUN Creatinine Ratio 26.2 (10-20); Calcium 9.5 mg/dl (8.5-10.1); Creatinine Clr Calc Pharmacy 22.3 ml/min; Est GFR (Non-African American) 38.9; Potassium 4.1 mmol/L (3.5-5.1)
[2018-11-07 09:10] LABS: Bilirubin,Total 0.3 mg/dl (0.2-1); Globulin 3.1 gm/dl (2.5-4.0); Total Protein 6.3 gm/dl (6.4-8.2)
--- NOTE | 2018-11-07 10:41 | Anesthesiology Progress Note ---
Date of Service November 07, 2018 Anesthesia Post Procedure Vital Signs Vital Signs: Temp Pulse Pulse Pulse Pulse Resp BP 11/07/18 10:09 36.7 C 77 77 18 152/62 H 11/07/18 07:18 36.7 C 77 18 152/62 H 11/07/18 03:47 36.7 C 96 H 19 94/63 L 11/06/18 23:29 37.1 C 76 16 126/65 11/06/18 19:37 36.5 C 73 16 151/67 H 11/06/18 17:00 36.9 C 70 16 119/64 11/06/18 16:01 36.4 C L 70 16 124/66 11/06/18 15:10 35.7 C L 74 16 136/80 11/06/18 14:59 77 16 152/72 H 11/06/18 14:00 36.8 C 77 16 148/84 H 11/06/18 13:45 36.4 C L 69 16 157/73 H 11/06/18 13:30 70 16 122/62 11/06/18 13:20 72 16 142/64 H 11/06/18 13:10 73 16 150/69 H 11/06/18 13:00 72 16 156/73 H 11/06/18 12:50 72 16 160/70 H 11/06/18 12:41 36.6 C 71 16 184/85 H 11/06/18 10:54 36.5 C 77 18 161/74 H Pulse Ox 11/07/18 10:09 94 11/07/18 07:18 94 11/07/18 03:47 96 11/06/18 23:29 95 11/06/18 19:37 93 11/06/18 17:00 93 11/06/18 16:01 92 11/06/18 15:10 94 11/06/18 14:59 99 11/06/18 14:00 91 11/06/18 13:45 95 11/06/18 13:30 95 11/06/18 13:20 95 11/06/18 13:10 100 11/06/18 13:00 100 11/06/18 12:50 99 11/06/18 12:41 99 11/06/18 10:54 98 Notes Mental Status: alert / awake / arousable and participated in evaluation Nausea / Vomiting: adequately controlled Pain: adequately controlled Airway Patency, RR, SpO2: stable & adequate BP & HR: stable & adequate Hydration State: stable & adequate
== END 2018-11-07 10:47 | disposition home health service (06) ==
LOC: ASU 10:20 → 3W 10:20